=== PATIENT | female | born 1990 ===

== ENCOUNTER 2020-06-23 07:00 | Day surgery (SDC) | payer OTHER ==
[~2020-06-23] VITALS: Ht 157.5 cm; Wt 74.4 kg
[~2020-06-23 07:00] MED LIST: VITAMIN D310 MCG/1 M PO
== END 2020-06-23 12:00 | disposition home or self-care (01) ==
LOC: CIR.AMB 07:00 → O/R 07:11 → EDSTATUS 08:15 → O/R 08:15 → CIR.AMB 12:00 → O/R 15:30
PROVIDERS: ATTEND Surgery
DX: D35.1 Benign neoplasm of parathyroid gland (principal); Z20.822 Contact with and (suspected) exposure to COVID-19

== ENCOUNTER 2022-10-12 09:30 | Outpatient (CLI) | payer OTHER | END 2022-10-12 10:45 | disposition home or self-care (01) | LOC: PRENATAL 09:30 | PROVIDERS: ATTEND Obstetrics & Gynecology Maternal & Fetal Medicine | DX: O36.80X0 Pregnancy with inconclusive fetal viability, not applicable or unspecified (principal); O34.40 Maternal care for other abnormalities of cervix, unspecified trimester; O34.10 Maternal care for benign tumor of corpus uteri, unspecified trimester; Z3A.01 Less than 8 weeks gestation of pregnancy ==

== ENCOUNTER 2022-11-09 14:13 | Outpatient (CLI) | payer OTHER | END 2022-11-09 16:45 | disposition home or self-care (01) | LOC: PRENATAL 14:13 | PROVIDERS: ATTEND Obstetrics & Gynecology Maternal & Fetal Medicine | DX: O36.80X0 Pregnancy with inconclusive fetal viability, not applicable or unspecified (principal); O34.10 Maternal care for benign tumor of corpus uteri, unspecified trimester; Z3A.12 12 weeks gestation of pregnancy ==

== ENCOUNTER 2022-12-31 07:56 | Outpatient (CLI) | payer OTHER | END 2022-12-31 10:22 | disposition home or self-care (01) | LOC: PRENATAL 07:56 | PROVIDERS: ATTEND Obstetrics & Gynecology Maternal & Fetal Medicine | DX: O35.3XX0 Maternal care for (suspected) damage to fetus from viral disease in mother, not applicable or unspecified (principal); O09.529 Supervision of elderly multigravida, unspecified trimester; Z14.8 Genetic carrier of other disease; O34.10 Maternal care for benign tumor of corpus uteri, unspecified trimester; O34.40 Maternal care for other abnormalities of cervix, unspecified trimester; O26.879 Cervical shortening, unspecified trimester; Z3A.19 19 weeks gestation of pregnancy ==

== ENCOUNTER 2023-01-25 08:46 | Outpatient (CLI) | payer OTHER | END 2023-01-25 12:13 | disposition home or self-care (01) | LOC: PRENATAL 08:46 | PROVIDERS: ATTEND Obstetrics & Gynecology Maternal & Fetal Medicine | DX: O26.849 Uterine size-date discrepancy, unspecified trimester (principal); O09.529 Supervision of elderly multigravida, unspecified trimester; O34.10 Maternal care for benign tumor of corpus uteri, unspecified trimester; O34.40 Maternal care for other abnormalities of cervix, unspecified trimester; O26.879 Cervical shortening, unspecified trimester; Z3A.23 23 weeks gestation of pregnancy ==

== ENCOUNTER 2023-02-15 10:09 | Outpatient (CLI) | payer OTHER | END 2023-02-15 12:08 | disposition home or self-care (01) | LOC: PRENATAL 10:09 | PROVIDERS: ATTEND Obstetrics & Gynecology Maternal & Fetal Medicine | DX: O26.849 Uterine size-date discrepancy, unspecified trimester (principal); O09.529 Supervision of elderly multigravida, unspecified trimester; Z14.8 Genetic carrier of other disease; O34.10 Maternal care for benign tumor of corpus uteri, unspecified trimester; O34.40 Maternal care for other abnormalities of cervix, unspecified trimester; O26.879 Cervical shortening, unspecified trimester; O36.5990 Maternal care for other known or suspected poor fetal growth, unspecified trimester, not applicable or unspecified; Z3A.26 26 weeks gestation of pregnancy ==